=== PATIENT | male | born 1970 | race Caucasian/White ===

== ENCOUNTER → 2018-03-26 | Outpatient (CLI) | payer BC ==
--- NOTE | 2018-03-26 17:37 | FL ---
EXAMINATION TYPE: Right shoulder fluoroscopic-guided arthrogram injection. DATE OF EXAM: 03/26/2018 HISTORY: 47-year-old male, labral tear, dull right shoulder pain since injury November 2017. No history of right shoulder dislocation. PROCEDURES: 1. Right shoulder fluoroscopy. 2. Right shoulder arthrogram. TECHNIQUE: The procedure, risks, and alternatives, were discussed with the patient, who requested that dev andre. The consent form was signed, and teach-back occurred. The site/side of the procedure was marked with a line with participation by the patient. The accompan lakshmi paperwork was verified for consistency. A directed history and physical exam was performed prior to the procedure. Medication reconciliation was performed by ancillary personnel. A critical pause was performed with assisting personnel just pr ior to the procedure, and the patient's identity was confirmed using 2 identifiers. Imaging guidance was utilized to select the precise skin entry point just prior to the procedure, ant erior right shoulder. The right shoulder was prepped and draped in the usual sterile fashion and local 1% lidocaine anesthe asha was instilled. Under fluoroscopic guidance, a 22 gauge spinal needle was introduced into the ant erior right glenohumeral joint. Appropriate needle tip position was confirmed after a small amount of contrast injection. Approximately 12 ml of a contrast mixture was injected into the glenohumeral joint (12 mL out of a 20 mL mixture comprised of 5 mL Isovue-300, 15 mL sterile saline, and 0.1 mL MultiHance). The needle wa s then removed. The patient tolerated the procedure well. There was no immediate complication. After the procedure, the patient's condition was unchanged. Estimated blood loss was minimal. IMPRESSION: Technically successful right shoulder arthrogram injection for MRI. No immediate complication.
--- NOTE | 2018-03-27 18:10 | MR ---
EXAMINATION TYPE: MRI arthrogram right shoulder DATE OF EXAM: 03/26/2018 COMPARISON: Correlation arthrogram injection same day. HISTORY: 47-year-old male with dull right shoulder pain since injury in November 2017. Assess for labral t ear. Technique: Multiplanar, multisequence images of the shoulder were obtained after intra-articular inje ction of a gadolinium mixture. Please refer to arthrogram report of the same day for complete details . FINDINGS: There is mild thickening and minimal intermediate signal within the intracapsular portion of the long head biceps tendon suggesting tendinosis. The extracapsular portion remains intact and appropriately situated along the bicipital groove. Mild heterogeneity of the subscapularis tendon. There is focal intrasubstance signal involving the mi ddle third footprint measuring 7 mm craniocaudal by 7 mm long. Moderate to severe degenerative joint space narrowing with marginal spurring and hypertrophic changes at the acromioclavicular joint. Inferior spurring abuts the myotendinous junction of the supraspinat us. Both supraspinatus and infraspinatus tendons are intact. There is mild inhomogeneous signal at the fo otprint of the anterior to mid supraspinatus tendon suggesting tendinosis. No atrophy of the rotator cuff musculature. No significant thickening or effusion within the subacromial/subdeltoid bursa. There is adequate distention of the shoulder joint after intra-articular injection. A Uziel complex is demonstrated. There is slightly irregular intermediate signal extending at the labral chondral leslie ction within the superior labrum just behind the biceps anchor. On coronal T2, no fluid signal is see n extending into this region. No paralabral cysts. The glenohumeral joint appears intact with mild diffuse thinning of articular cartilage along the sup erior humeral head. No high-grade chondral injury No Hill-Sachs deformity or os acromiale. No bone marrow edema seen. IMPRESSION: 1. Some degenerative signal involving the superior labrum. No fluid/contrast seen extending into this region on T2 sequence to support any sizable labral tear. 2. Normal variant [place] complex. 3. Small 7 x 7 mm intrasubstance change involving the middle third subscapularis tendon fibers. Addit ional mild supraspinatus tendinosis. 4. Moderate to severe AC joint OA with mild impingement onto the underlying cuff. 5. Mild intracapsular long head biceps tendinosis.
== END | disposition home or self-care (01) ==
LOC: RADFLMAIN 12:53
PROVIDERS: ATTEND Orthopaedic Surgery
DX: M19.011 Primary osteoarthritis, right shoulder (principal); M67.813 Other specified disorders of tendon, right shoulder; M25.811 Other specified joint disorders, right shoulder
CPT/HCPCS: 23350; 73040; 73222; A9577; Q9967